=== PATIENT | male | born 1950 | race Caucasian/White ===

== ENCOUNTER → 2017-01-03 | Outpatient (CLI) | payer BC ==
[~2017-01-03] MED LIST: GLIP10TA13 PO; LISI-556 PO; LISI1TAB8 PO; Lisinopril; METF850T2 PO; SULF1TAB38 PO; TESTOSTERONE
== END ==
LOC: CARD 09:47
DX: R00.1 Bradycardia, unspecified (principal)
CPT/HCPCS: 93225; 93226

== ENCOUNTER → 2018-08-17 | Outpatient (CLI) | payer MEDICARE, OTHER ==
[~2018-08-17] MED LIST changes: +METF-398 PO; -METF850T2 PO
--- NOTE | 2018-08-17 10:49 | Diagnostic Imaging Report ---
PROCEDURE: CT abdomen and pelvis without contrast. TECHNIQUE: Multiple contiguous axial images were obtained through the abdomen and pelvis without the use of intravenous contrast. INDICATION: Abdominal and pelvic pain. FINDINGS: There is a probable tiny calcified granuloma in the visualized left lung base. A small amount of pericardial fluid or thickening is also noted. The unenhanced images of the liver and spleen reveal no focal abnormality. There is mild distention of the gallbladder without evidence of gallbladder wall thickening or pericholecystic fluid. A small hiatal hernia is noted. No pancreatic or adrenal gland lesion is identified. The unenhanced images of the kidneys reveal no evidence of mass, stone, or hydronephrosis. There is no evidence of ureteric calculus or dilatation. The appendix has a normal appearance. There is no evidence of free fluid within the abdomen or pelvis. There is mild herniation of fat into both inguinal canals. There is mild diffuse lumbar spondylosis. No localized inflammation or organized fluid collection is identified. IMPRESSION: No acute abnormality is detected. The report was called to Maria D/office of Radha King APRN, by AMOS@10:48 AM. Dictated by: Dictated on workstation # [id number]
== END ==
LOC: RAD 10:10
PROVIDERS: ATTEND Nurse Practitioner Family
DX: R10.2 Pelvic and perineal pain (principal)
CPT/HCPCS: 74176

== ENCOUNTER → 2018-08-21 | Outpatient (CLI) | payer MEDICARE, OTHER ==
--- NOTE | 2018-08-21 17:43 | Diagnostic Imaging Report ---
EXAMINATION: Lumbar spine radiographs, 3 views. COMPARISON: CT abdomen and pelvis August 17, 2018. HISTORY: 67-year-old male, acute onset low back pain. FINDINGS: There are 5 lumbar type vertebral bodies. There is no identified compression deformity or fracture. There are multilevel endplate degenerative related changes with multilevel moderate disc height loss at the thoracolumbar spine levels. The alignment of the lumbar spine is unremarkable. There are mild bilateral facet degenerative changes at L4-L5 and L5-S1. The sacroiliac joints are unremarkable in appearance. There is [id number]-[id number] osteoarthritis of both hips. IMPRESSION: 1. Multilevel moderate disc degenerative changes of thoracolumbar spine with mild bilateral facet degenerative changes at L4-L5 and L5-S1. 2. 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 3. No identified compression deformity or other fracture. Dictated by: Dictated on workstation # [id number]
== END ==
LOC: RAD 16:21
DX: M47.815 Spondylosis without myelopathy or radiculopathy, thoracolumbar region (principal); M47.817 Spondylosis without myelopathy or radiculopathy, lumbosacral region; M16.0 Bilateral primary osteoarthritis of hip
CPT/HCPCS: 72100

== ENCOUNTER → 2018-08-23 | Outpatient (CLI) | payer MEDICARE, OTHER ==
[~2018-08-23] MED LIST changes: +BARIUM SUSPENSION 105% (LIQUID POLIBAR PLUS) 240 ML/DOSE PO ONE; +BARIUM SUSPENSION 60% (LIQUID EZ PAQUE) 240 ML DOSE PO ONE
--- NOTE | 2018-08-23 18:02 | Diagnostic Imaging Report ---
EXAMINATION: Upper GI exam. INDICATION: Abdominal pain. FINDINGS: The preliminary films were unremarkable for an acute abnormality. There was a fair amount of fecal material throughout the ascending, transverse, and descending colon. A double contrast exam was performed. There are no prior studies available for comparison. The patient swallowed the contrast material without difficulty. There is no delay or obstruction of passage of barium through the esophagus. There is a small hiatal hernia, but there is no sign of reflux. There is no evidence for esophagitis either. The stomach shows good distensibility and motility. There is no mass or ulceration. The duodenal bulb and proximal small bowel are unremarkable. IMPRESSION: 1. There is a small sliding hiatal hernia, but there is no evidence for reflux or for esophagitis. 2. There is no gastric mass or ulceration noted. 3. The duodenal bulb and proximal small bowel are unremarkable. Dictated by: Dictated on workstation # [id number]
== END ==
LOC: RAD 10:09
DX: K44.9 Diaphragmatic hernia without obstruction or gangrene (principal)
CPT/HCPCS: 74241

== ENCOUNTER 2018-09-11 05:52 | Outpatient (CLI) | payer MEDICARE, OTHER ==
[~2018-09-11] VITALS: Ht 185.4 cm; Wt 128.5 kg
[~2018-09-11 05:52] MED LIST changes: -BARIUM SUSPENSION 105% (LIQUID POLIBAR PLUS) 240 ML/DOSE PO ONE; -BARIUM SUSPENSION 60% (LIQUID EZ PAQUE) 240 ML DOSE PO ONE
[2018-09-11] MEDS ORDERED: ALOG25TA PO (10:41)
== END 2018-09-11 10:55 | disposition home or self-care (01) ==
LOC: PREOP 05:52
PROVIDERS: ATTEND Surgery
DX: Z01.818 Encounter for other preprocedural examination (principal)

== ENCOUNTER 2018-10-02 12:02 | Day surgery (SDC) | payer MEDICARE, OTHER ==
[~2018-10-02] VITALS: Ht 185.4 cm; Wt 128.5 kg
[~2018-10-02 12:02] MED LIST changes: +ALOG25TA PO
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
[2018-10-02] MEDS ORDERED: LACTATED RINGERS 1,000 ML IV ONE (12:08)
[2018-10-02] MEDS ORDERED: LACTATED RINGERS 1,000 ML IV STA (12:11)
[2018-10-02 12:15] VITALS: BP 150/99
[2018-10-02] MEDS ORDERED: PROPOFOL INJECTION 50 ML IV ONE (13:43)
[2018-10-02] MEDS ORDERED: MIDAZOLAM 2 MG/2 ML (VERSED) VIAL ONE (13:48)
--- NOTE | 2018-10-02 14:40 | Progress Note-Post Operative ---
Post-Operative Progess Note Surgeon (s)/Manufacturing Management Associate (s) Surgeon RETA BAH DO Manufacturing Management Associate: na Pre-Operative Diagnosis history of colon polyps Post-Operative Diagnosis descending colon polyp, anal tag Procedure & Operative Findings Date of Procedure 10/02/18 Procedure Performed/Findings colonoscopy c hot bx polypectomy Anesthesia Type per system support technician Estimated Blood Loss Estimated blood loss (mL): none Specimens/Packing Specimens Removed descending colon polyp RETA BAH DO Oct 02, 2018 14:40
--- NOTE | 2018-10-02 14:44 | Discharge Inst-Simple/Standard ---
Discharge Inst-Standard Patient Instructions/Follow Up Plan of Care/Instructions/FU: 2 weeks Shayna Activity as Tolerated: Yes Discharge Diet: Regular Diet RETA BAH DO Oct 02, 2018 14:44
[2018-10-02 14:50] VITALS: BP 144/87
[2018-10-02 15:15] VITALS: BP 143/95
--- NOTE | 2018-10-02 16:28 | OPERATIVE REPORT ---
DATE OF SERVICE: 10/02/2018 PREOPERATIVE DIAGNOSES: History of colon polyps, family history of colon cancer. POSTOPERATIVE DIAGNOSIS: Descending colon polyp. PROCEDURE: Colonoscopy with hot biopsy polypectomy. SURGEON: Reta Corral DO ANESTHESIA: Per EDITOR MANAGING DIRECTOR. ESTIMATED BLOOD LOSS: None. COMPLICATIONS: None. INDICATIONS: The patient is a 67-year-old male with a history of colon polyps and family history of colon cancer. The patient understands risks and benefits of procedure and wished to proceed with procedure. Consent was signed on the chart. DESCRIPTION OF PROCEDURE: The patient was taken to the endoscopy suite, placed in left lateral recumbent position. A timeout was performed. A digital rectal exam was performed. Large anal tag. No palpable polyps, mass or ulcerations. Good rectal tone. Scope was inserted in the rectum and advanced all the way to the cecum with minimal difficulty. Prep was adequate. Scope was slowly retracted back. There were no polyps, masses or ulceration in the cecum, ascending, transverse colon. Within the ascending colon, a small polyp was present, which hot biopsy polypectomy was performed. Scope was continuously retracted back. No polyps, mass or ulceration of the sigmoid colon and in the rectum, scope was also retroflexed noting no other pathology. Scope was returned to its normal position, slowly withdrawn until completely removed. The patient tolerated the procedure well without any complications. He was in the recovery room in stable condition. RECOMMENDATIONS: The patient will follow up in 2 weeks to discuss pathology results. If he would like anal tag remove, to discuss He will need repeat colonoscopy in 5 years. Any issues before that be seen at that time. Job ID: [id number] DocumentID: [id number] Dictated Date: 10/02/2018 14:48:44 Opera Singer Date: 10/02/2018 16:27:12 Dictated By: RETA CORRAL DO
== END 2018-10-02 15:25 | disposition home or self-care (01) ==
LOC: ENDO 12:02
PROVIDERS: ATTEND Surgery
DX: Z12.11 Encounter for screening for malignant neoplasm of colon (principal); D12.4 Benign neoplasm of descending colon; Z80.0 Family history of malignant neoplasm of digestive organs; Z86.010 Personal history of colon polyps; I10 Essential (primary) hypertension; G47.33 Obstructive sleep apnea (adult) (pediatric); E11.9 Type 2 diabetes mellitus without complications; E66.01 Morbid (severe) obesity due to excess calories; Z68.37 Body mass index [BMI] 37.0-37.9, adult; Z79.84 Long term (current) use of oral hypoglycemic drugs; Z79.899 Other long term (current) drug therapy
CPT/HCPCS: 82962

== ENCOUNTER 2021-08-28 12:20 | Observation (INO) | payer MEDICARE, OTHER ==
[~2021-08-28] VITALS: Ht 182 cm; Wt 125.4 kg
[~2021-08-28 12:20] MED LIST changes: -LISI-556 PO; +LISI1TAB46 PO; -LISI1TAB8 PO; +LISI5TAB20 PO
[2021-08-28] MEDS ORDERED: fentaNYL INJ 100 MCG/2 ML AMP IVP STA (12:32)
--- NOTE | 2021-08-28 12:39 | ED Trauma-Multisystem ---
General Chief Complaint: Trauma-Non Activation Stated Complaint: FALL History of Present Illness Date Seen by Provider: Aug 28, 2021 Time Seen by Provider: 12:35 Initial Comments Patient is a 70-year-old male who presents ED with back pain. 30 minutes ago patient was cleaning out his gutters at home on a a ladder 6 to 8 feet when the ladder gave out secondary to the wind him falling hitting against the house and hard ground. No loss of consciousness or blood thinners. Patient did not ambulate after the fall. EMS was contacted. Patient was placed in c-collar. Patient is complaining of mid to lower back pain. Pain with deep inspiration. Patient the left lower leg. Not up-to-date on his tetanus. Denies any visual changes, vomiting, shortness of breath, abdominal pain, dysuria fever, chills. Denies of any distal numbness and tingling. Moving all extremities without difficulties. Alert and orient x4. GCS 15. (YOLANDA MOLINA) Allergies and Home Medications Allergies Coded Allergies: No Known Drug Allergies (Unverified , 09/11/18) Patient Home Medication List Home Medication List Reviewed: Yes (YOLANDA MOLINA) Alogliptin Benzoate (Nesina) 25 Mg Tablet, 25 MG PO DAILY, (Reported) Entered as Reported by: WILLIE ZACARIAS on 09/11/18 1041 Last Action: Reviewed Glipizide (Glipizide) 10 Mg Tablet, 5 MG PO DAILY, (Reported) Entered as Reported by: VARGHESE ARREAGA on 03/18/16 0436 Last Action: Reviewed Lisinopril (Lisinopril) 5 Mg Tablet, 5 MG PO DAILY Prescribed by: IRON FOWLER on 03/18/16 1051 Last Action: Reviewed Review of Systems Review of Systems Constitutional: No chills, No diaphoresis, No fever, No malaise Eyes: Denies Drainage, Denies Inflammation, Denies Pain Ears: Denies Dizziness, Denies Pain, Denies Bloody Discharge, Denies Purulent Discharge Nose: No Bloody Discharge, No Clear Discharge Mouth: No Bloody Discharge, No Clear Discharge, No Clots Respiratory: No cough, No dyspnea on exertion Cardiovascular: Denies See HPI; Chest Pain Gastrointestinal: No abdominal pain, No diarrhea, No nausea, No vomiting Musculoskeletal: back pain, joint pain, muscle pain, muscle stiffness, muscle weakness Skin: other (Abrasion to left lower extremity) (YOLANDA MOLINA) All Other Systems Reviewed Negative Unless Noted: Yes (YOLANDA MOLINA) Past Swxnejy-Kjtupz-Xxzfky Hx Immunizations Up To Date Tetanus Booster (TDap): Unknown PED Vaccines UTD: No (YOLANDA MOLINA) Seasonal Allergies Seasonal Allergies: Yes (YOLANDA MOLINA) Past Medical History Surgeries: Yes (C-SPINE SURGERY, KNEE SCOPE / TORN MENISCUS) Orthopedic Respiratory: Yes Sleep Apnea Currently Using CPAP: Yes Currently Using BIPAP: No Cardiac: Yes Hypertension Neurological: No Reproductive Disorders: Yes (low testosterone) Sexually Transmitted Disease: No HIV/AIDS: No Genitourinary: No Gastrointestinal: No Musculoskeletal: Yes (NECK PROBLEMS) Arthritis Endocrine: Yes Diabetes, Non-Insulin dep HEENT: Yes (GLASSES) Loss of Vision: Bilateral Hearing Impairment: Denies Cancer: No Psychosocial: No Integumentary: No Blood Disorders: No Adverse Reaction/Blood Tranf: No (N/A) (YOLANDA MOLINA) Physical Exam Vital Signs Vital Signs - First Documented 08/28/21 12:20 Temp 35.4 Pulse 62 Resp 16 B/P (MAP) 112/84 (93) Pulse Ox 96 O2 Delivery Room Air (ELISA CABA MD) Height, Weight, BMI Height: 6'1.00" Weight: 283lbs. 5.0oz. [id number]; 37.4 BMI Method:Stated General Appearance: No Apparent Distress, WD/WN Head: No Evidence of Injury Eyes: Right Eye Abnormal Pupil; Bilateral Eye Normal Inspection, Bilateral Eye PERRL Ears, Nose, Throat: Hearing Grossly Normal, No Evidence of ENT Injury, No Den justin Injury Neck: Full Range of Motion, Normal Inspection, Non Tender, Supple, Other (C- collar in place) Cardiovascular: Regular Rate, Rhythm, No Edema, No Gallop, No JVD Respiratory: Chest Non Tender, Lungs Clear, Normal Breath Sounds, No Accessory Muscle Use Gastrointestinal: Normal Bowel Sounds, No Organomegaly, No Pulsatile Mass, Non Tender Back: Other (Lumbar midline tenderness, lower thoracic midline tenderness. 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 No active bleeding.) (YOLANDA MOLINA) Keeley Coma Score Best Eye Response (Keeley): (4) Open Spontaneously Best Verbal Response (Keeley): (5) Oriented Best Motor Response (Keeley): (6) Obeys Commands Keeley Total: 15 (YOLANDA MOLINA) Progress/Results/Core Measures Results/Orders Lab Results Laboratory Tests Test 08/28/21 12:45 Range/Units White Blood Count 9.3 4.3-11.0 10^3/uL Red Blood Count 5.64 H 4.30-5.52 10^6/uL Hemoglobin 15.3 13.3-17.7 g/dL Hematocrit 47 40-54 % Mean Corpuscular Volume 82 80-99 fL Mean Corpuscular Hemoglobin 27 25-34 pg Mean Corpuscular Hemoglobin Concent 33 32-36 g/dL Red Cell Distribution Width 13.2 10.0-14.5 % Platelet Count 215 130-400 10^3/uL Mean Platelet Volume 10.1 9.0-12.2 fL Immature Granulocyte % (Auto) 1 % Neutrophils (%) (Auto) 70 42-75 % Lymphocytes (%) (Auto) 20 12-44 % Monocytes (%) (Auto) 7 0-12 % Eosinophils (%) (Auto) 3 0-10 % Basophils (%) (Auto) 0 0-10 % Neutrophils # (Auto) 6.5 1.8-7.8 10^3/uL Lymphocytes # (Auto) 1.8 1.0-4.0 10^3/uL Monocytes # (Auto) 0.6 0.0-1.0 10^3/uL Eosinophils # (Auto) 0.2 0.0-0.3 10^3/uL Basophils # (Auto) 0.0 0.0-0.1 10^3/uL Immature Granulocyte # (Auto) 0.1 0.0-0.1 10^3/uL Sodium Level 139 135-145 MMOL/L Potassium Level 3.7 3.6-5.0 MMOL/L Chloride Level 107 98-107 MMOL/L Carbon Dioxide Level 21 21-32 MMOL/L Anion Gap 11 5-14 MMOL/L Blood Urea Nitrogen 15 7-18 MG/DL Creatinine 1.08 0.60-1.30 MG/DL Estimat Glomerular Filtration Rate 75 BUN/Creatinine Ratio 14 Glucose Level 183 H 70-105 MG/DL Calcium Level 9.5 8.5-10.1 MG/DL Corrected Calcium 9.6 8.5-10.1 MG/DL Total Bilirubin 0.7 0.1-1.0 MG/DL Aspartate Amino Transf (AST/SGOT) 19 5-34 U/L Alanine Aminotransferase (ALT/SGPT) 22 0-55 U/L Alkaline Phosphatase 85 40-136 U/L Total Protein 6.8 6.4-8.2 GM/DL Albumin 3.9 3.2-4.5 GM/DL (ELISA CABA MD) Medications Given in ED Current Medications Medications Dose Ordered Sig/Misty Route Start Time Stop Time Status Last Admin Dose Admin Iohexol 100 ml ONCE ONCE IV 08/28/21 13:30 08/28/21 13:31 DC 08/28/21 13:47 100 ML Ketorolac Tromethamine 30 mg ONCE ONCE IVP 08/28/21 14:45 08/28/21 14:46 DC 08/28/21 14:49 30 MG Morphine Sulfate 4 mg ONCE ONCE IVP 08/28/21 14:45 08/28/21 14:46 DC 08/28/21 14:46 4 MG Orphenadrine Citrate 60 mg ONCE ONCE IV 08/28/21 14:30 08/28/21 14:31 DC 08/28/21 14:34 60 MG Sodium Chloride 100 ml ONCE ONCE IV 08/28/21 13:30 08/28/21 13:31 DC 08/28/21 13:47 80 ML (ELISA CABA MD) Vital Signs/I&O 08/28/21 12:20 Temp 35.4 Pulse 62 Resp 16 B/P (MAP) 112/84 (93) Pulse Ox 96 O2 Delivery Room Air (ELISA CABA MD) Departure Communication (Admissions) Time/Spoke to Admitting Phy: 15:41 Patient was discussed with Dr. Josue who accepts patient under observation for further evaluation. Patient is a 70-year-old male who was brought to ED by EMS for middle lower back pain secondary to a fall. Patient was placed in c-collar. Patient has no neurological red flag findings. He has no bowel or urine incontinence, lower extremity weakness. He is moving all extremities but was not able to move secondary to the fall. 6 to 8 feet fall possible hitting his head however more of his pain is mid to lower back. No significant trauma noted on exam. CT scan of the head and cervical spine negative for fracture or bleed. C-collar was cleared and removed. CT scan of the chest and abdomen and pelvis with contrast negative for acute abnormality. CT scan thoracic and lumbar spine negative for acute fracture or trauma. Patient was given multiple doses of pain medication and muscle relaxer. Patient was observed here. Attempted 3 times to ambulate patient but this was unsuccessful secondary to the pain. Patient is able to urinate. Patient was discussed with Dr. Josue accepts patient. Patient may need further imaging such as MRI however concerned that patient safely cannot take care of himself at home and does not have the support. History of hypertension and diabetes (YOLANDA MOLINA) Impression Primary Impression: Intractable low back pain Disposition: ADMITTED INPATIENT Condition: Stable Admissions Decision to Admit Reason: Admit from ER (General) Decision to Admit/Date: Aug 28, 2021 Time/Decision to Admit Time: 15:41 (YOLANDA MOLINA) Departure-Patient Inst. Referrals: ADRY TIDWELL MD (PCP/Family) Primary Care Physician Patient Instructions: Low Back Pain in Adults ATTENDING PHYSICIAN NOTE: I was physically present as attending physician in the emergency department during the care of this patient, but I was not directly involved in the decision making or delivery of care for this patient. (ELISA CABA MD) YOLANDA MOLINA Aug 28, 2021 12:39 ELISA CABA MD Aug 28, 2021 18:23
[2021-08-28 12:52] LABS: BASOPHILS % (AUTO) 0 % (0-10); EOSINOPHILS # (AUTO) 0.2 10^3/uL (0.0-0.3); EOSINOPHILS % (AUTO) 3 % (0-10); HEMATOCRIT 47 % (40-54); HEMOGLOBIN 15.3 g/dL (13.3-17.7); LYMPHOCYTES # (AUTO) 1.8 10^3/uL (1.0-4.0); LYMPHOCYTES % (AUTO) 20 % (12-44); MEAN CORPUSCULAR HEMOGLOBIN 27 pg (25-34); MEAN CORPUSCULAR HGB CONC 33 g/dL (32-36); MEAN CORPUSCULAR VOLUME 82 fL (80-99); MEAN PLATELET VOLUME 10.1 fL (9.0-12.2); MONOCYTES # (AUTO) 0.6 10^3/uL (0.0-1.0); MONOCYTES % (AUTO) 7 % (0-12); NEUTROPHILS # (AUTO) 6.5 10^3/uL (1.8-7.8); NEUTROPHILS % (AUTO) 70 % (42-75); PLATELET COUNT 215 10^3/uL (130-400); WHITE BLOOD COUNT 9.3 10^3/uL (4.3-11.0)
[2021-08-28 13:04] LABS: ALBUMIN 3.9 GM/DL (3.2-4.5); POTASSIUM 3.7 MMOL/L (3.6-5.0)
[2021-08-28 13:06] LABS: CALCIUM 9.5 MG/DL (8.5-10.1)
[2021-08-28 13:07] LABS: TOTAL PROTEIN 6.8 GM/DL (6.4-8.2)
[2021-08-28 13:09] LABS: BILIRUBIN,TOTAL 0.7 MG/DL (0.1-1.0)
[2021-08-28 13:10] LABS: CREATININE SERUM 1.08 MG/DL (0.60-1.30)
[2021-08-28] MEDS ORDERED: HOLD METFORMIN - RECEIVED CONTRAST 20 ML VIAL IV SCH (13:30)
[2021-08-28] MEDS ORDERED: IOHEXOL 350 MG/ML 100 ML (OMNIPAQUE 350) VIAL IV ONE (13:30)
[2021-08-28] MEDS ORDERED: NS 100 ML (IVPB) BAG IV ONE (13:30)
--- NOTE | 2021-08-28 14:06 | Diagnostic Imaging Report ---
PROCEDURE: CT head and CT cervical spine without contrast. TECHNIQUE: Multiple contiguous axial images were obtained through the brain and cervical spine without the use of intravenous contrast. Sagittal and coronal reformations through the cervical spine were then performed. Auto Exposure Controls were utilized during the CT exam to meet ALARA standards for radiation dose reduction. INDICATION: Head and neck injury, struck with Ayden handle, neck and head pain. COMPARISON: Head CT 12/23/2012. Discussion: Head: No acute intracranial hemorrhage, mass, midline shift, or hydrocephalus. The ventricles and sulci are normal size and configuration for age. The orbits, sinuses, mastoid air cells, and calvarium are unremarkable. Cervical spine: Advanced degenerative disc disease and facet arthropathy are noted. There is fusion of the C5-C6 intervertebral disc space. There are prominent disc osteophyte complexes at multiple levels likely contributing to moderate if not severe central canal stenosis. No fracture or subluxation. Alignment is anatomic. Paraspinal soft tissues are unremarkable. Impression: 1. No acute intracranial abnormality identified. 2. Advanced degenerative disease noted within the cervical spine. No acute fracture. Dictated by: Dictated on workstation # [id number]
--- NOTE | 2021-08-28 14:25 | Diagnostic Imaging Report ---
PROCEDURE: CT thoracic and lumbar spine without contrast. TECHNIQUE: Multiple contiguous axial images were obtained through the thoracic and lumbar spine without the use of intravenous contrast. Sagittal and coronal reformations were then performed. All CT scans use one or more of the following dose optimizing techniques: automated exposure control, MA and/or KvP adjustment based on a patient size and exam type, or iterative reconstruction. INDICATION: Mid to low back pain after a 6' fall. COMPARISON: CT of the abdomen and pelvis 08/17/2018. DISCUSSION: No acute fracture or subluxation. Moderate to advanced degenerative disc disease noted diffusely throughout the thoracic and lumbar spine. Multiple anterior bridging syndesmophytes are noted throughout. Alignment is anatomic. Moderate degenerative disease noted within the sacroiliac joints. Antecedent granulomatous disease noted within the chest. Soft tissues are otherwise unremarkable. Very mild dextroscoliosis of the thoracic spine. Advanced facet arthropathy noted throughout the lumbar spine. Baastrup's disease is present. IMPRESSION: 1. Chronic changes of the thoracic and lumbar spine, as described. No acute fracture identified. Dictated by: Dictated on workstation # [id number]
--- NOTE | 2021-08-28 14:27 | Diagnostic Imaging Report ---
PROCEDURE: CT chest, abdomen, and pelvis with contrast. TECHNIQUE: Multiple contiguous axial images were obtained through the chest, abdomen, and pelvis after the administration of intravenous contrast. Auto Exposure Controls were utilized during the CT exam to meet ALARA standards for radiation dose reduction. INDICATION: Chest and abdominal pain after a fall from 6 foot height. COMPARISON: CT of abdomen and pelvis 08/17/2018. DISCUSSION: CHEST: No pneumothorax. No consolidation. Thoracic aorta is normal in caliber and configuration. Normal heart size. No pleural or pericardial fluid. No adenopathy. No acute osseous abnormality. ABDOMEN / PELVIS: Small hiatal hernia. The liver, gallbladder, pancreas, stomach, spleen, and adrenal glands are otherwise unremarkable. No renal stone or hydronephrosis. The aorta is normal in caliber. Diverticulosis with no secondary evidence of diverticulitis. The bladder and prostate gland are unremarkable. No ascites or adenopathy. The appendix is normal. No obstruction or pneumatosis. No osseous abnormality. IMPRESSION: 1. No acute abnormality within the chest, abdomen, or pelvis. Dictated by: Dictated on workstation # [id number]
[2021-08-28] MEDS ORDERED: ORPHENADRINE 60 MG/2 ML (NORFLEX) AMP (ED ONLY) IM ONE (14:30)
[2021-08-28] MEDS ORDERED: ORPHENADRINE 60 MG/2 ML (NORFLEX) AMP (ED ONLY) IV ONE (14:30)
[2021-08-28] MEDS ORDERED: KETOROLAC 30 MG/ML VIAL IVP ONE (14:45)
[2021-08-28] MEDS ORDERED: morphine INJ 10 MG/ML 1ML (SYR OR VIAL) IVP ONE (14:45)
[2021-08-28 16:50] VITALS: BP 122/79
[2021-08-28] MEDS ORDERED: ACETAMINOPHEN 500 MG TAB (TYLENOL) PO PRN (17:15)
[2021-08-28] MEDS ORDERED: morphine INJ 4 MG/ML 1 ML (VIAL/SYRINGE) IV PRN (17:15)
[2021-08-28] MEDS ORDERED: KETOROLAC 30 MG/ML VIAL IV PRN (17:15)
[2021-08-28 19:08] VITALS: BP 140/79
[2021-08-28] MEDS ORDERED: polyethylene glycoL POWDER 17 GM (MIRALAX) PACK PO PRN (20:00)
[2021-08-28] MEDS ORDERED: ONDANSETRON 4 MG (ZOFRAN) ORAL DISSOLVE TAB PO PRN (20:00)
[2021-08-28] MEDS ORDERED: ONDANSETRON 4 MG/2 ML (SDV) Z0FRAN IV PRN (20:00)
[2021-08-28] MEDS ORDERED: ANTACID SUSP 30 ML UDC (MYLANTA) PO PRN (20:00)
[2021-08-28] MEDS ORDERED: ACETAMINOPHEN 325 MG TABLET PO PRN (20:00)
[2021-08-28] MEDS ORDERED: diphenhydrAMINE 25 MG TAB (BENADRYL) PO PRN (20:00)
[2021-08-28] MEDS ORDERED: MELATONIN 3 MG TABLET PO PRN (20:00)
[2021-08-28] MEDS ORDERED: CATHETER FLUSH 10 ML SYR IVP PRN (20:30)
[2021-08-28] MEDS: inSUlin ASPART (NovoLOG) 1 UNIT/0.01 ML (CHARGE PER UNIT) SC SCH (20:47)
[2021-08-28] MEDS: SENNOSIDES 8.6 MG (SENOKOT) TAB PO SCH (21:52)
[2021-08-28] MEDS: DOCUSATE SODIUM 100 MG (COLACE) CAP PO SCH (21:52)
[2021-08-28] MEDS: CATHETER FLUSH 10 ML SYR IVP SCH (21:53)
[2021-08-28] MEDS: ENOXAPARIN 40 MG/0.4 ML (LOVENOX) SYR SC SCH (21:53)
[2021-08-29] VITALS (7 sets, daily range): BP systolic 117–143; BP diastolic 68–90
[2021-08-29 05:11] LABS: BASOPHILS % (AUTO) 1 % (0-10); EOSINOPHILS # (AUTO) 0.3 10^3/uL (0.0-0.3); EOSINOPHILS % (AUTO) 4 % (0-10); HEMATOCRIT 47 % (40-54); HEMOGLOBIN 15.1 g/dL (13.3-17.7); LYMPHOCYTES # (AUTO) 2.3 10^3/uL (1.0-4.0); LYMPHOCYTES % (AUTO) 29 % (12-44); MEAN CORPUSCULAR HEMOGLOBIN 27 pg (25-34); MEAN CORPUSCULAR HGB CONC 32 g/dL (32-36); MEAN CORPUSCULAR VOLUME 83 fL (80-99); MEAN PLATELET VOLUME 10.1 fL (9.0-12.2); MONOCYTES # (AUTO) 0.7 10^3/uL (0.0-1.0); MONOCYTES % (AUTO) 8 % (0-12); NEUTROPHILS # (AUTO) 4.7 10^3/uL (1.8-7.8); NEUTROPHILS % (AUTO) 59 % (42-75); PLATELET COUNT 218 10^3/uL (130-400); WHITE BLOOD COUNT 8.1 10^3/uL (4.3-11.0)
[2021-08-29 05:30] LABS: POTASSIUM 3.8 MMOL/L (3.6-5.0)
[2021-08-29 05:32] LABS: CALCIUM 9.2 MG/DL (8.5-10.1)
[2021-08-29 05:36] LABS: CREATININE SERUM 0.89 MG/DL (0.60-1.30)
[2021-08-29] MEDS: CATHETER FLUSH 10 ML SYR IVP SCH ×3 (06:03→20:53)
[2021-08-29] MEDS: inSUlin ASPART (NovoLOG) 1 UNIT/0.01 ML (CHARGE PER UNIT) SC SCH ×4 (06:03→20:53)
[2021-08-29] MEDS: SENNOSIDES 8.6 MG (SENOKOT) TAB PO SCH ×2 (08:21→20:53)
[2021-08-29] MEDS: DOCUSATE SODIUM 100 MG (COLACE) CAP PO SCH ×2 (08:21→20:53)
[2021-08-29] MEDS: BACLOFEN 10 MG (LIORESAL) TAB PO SCH ×3 (10:58→20:53)
--- NOTE | 2021-08-29 15:44 | History & Physical-Hospitalist ---
History of Present Illness HPI/Chief Complaint Doyle Goldman is a 70 year old male with PMH HTN, T2DM, obesity, who presented with back pain. He fell from a ladder at his house. He is not sure how he landed, but he says he hit the house. He denies hitting his head or losing consciousness. He laid on the ground until EMS arrived. Upon my exam, he is feeling slightly better. He is having low back pain in the center of his back with some pain radiating out to both sides just above his buttocks. He is not having any pain or numbness in his legs. He denies chest pain. He denies shortness of breath. He has been able to eat and drink. He was able to stand up beside his bed earlier. Source: patient Exam Limitations: no limitations Date Seen 08/29/21 Time Seen by a Provider: 09:55 Attending Physician Manpreet Teague MD PCP Rosendo Perez MD Referring Physician Date of Admission Aug 28, 2021 at 15:35 Home Medications & Allergies Home Medications Reviewed patient Home Medication Reconciliation performed by pharmacy medication reconciliations agriculture technician and/or nursing. Patients Allergies have been reviewed. Allergies Allergies Coded Allergies No Known Drug Allergies (Unverified09/11/18) Past Sretotd-Ovllsb-Gyiegq Hx Patient Social History Tobacco Use?: No Smoking Status: Never a Smoker Use of E-Cig and/or Vaping dev: No Substance use?: No Alcohol Use?: No Pt feels they are or have been: No Immunizations Up To Date Date of Influenza Vaccine: Apr 02, 2018 Tetanus Booster (TDap): More Than 5 Years PED Vaccines UTD: No Date of Pneumonia Vaccine: Mar 28, 2016 Seasonal Allergies Seasonal Allergies: Yes Current Status Advance Directives: No Primary Language: Guinean Preferred Spoken Language: Guinean Sensory deficits: Vision impairment Implanted or Applied Medical D: Orthopedic hardware Past Medical History Surgeries: Orthopedic Sleep Apnea Currently Using CPAP: Yes Currently Using BIPAP: No Hypertension Sexually Transmitted Disease: No HIV/AIDS: No Arthritis Diabetes, Non-Insulin dep Loss of Vision: Bilateral Hearing Impairment: Denies Blood Disorders: No Adverse Reaction/Blood Tranf: No (N/A) Family Medical History No Pertinent Family Hx Review of Systems Constitutional: no symptoms reported EENTM: no symptoms reported Respiratory: no symptoms reported Cardiovascular: no symptoms reported Gastrointestinal: no symptoms reported Genitourinary: no symptoms reported Musculoskeletal: back pain Skin: no symptoms reported Psychiatric/Neurological: No Symptoms Reported Physical Exam Physical Exam Vital Signs Vital Signs - First Documented 08/28/21 08/28/21 12:20 16:56 Temp 35.4 Pulse 62 Resp 16 B/P (MAP) 112/84 (93) Pulse Ox 96 O2 Delivery Room Air O2 Flow Rate 0.00 Capillary Refill : Less Than 3 Seconds Height, Weight, BMI Height: 6'1.00" Weight: 283lbs. 5.0oz. 128.650480ox; 37.85 BMI Method:Stated General Appearance: No Apparent Distress, Obese HEENT: PERRL/EOMI, Pharynx Normal Neck: Normal Inspection, Supple Respiratory: Lungs Clear, Normal Breath Sounds, No Respiratory Distress Cardiovascular: Regular Rate, Rhythm, No Edema, No Murmur Gastrointestinal: Normal Bowel Sounds, Non Tender, Soft Back: Normal Inspection, Other (mid back pain around T12-L1, bilateral flank tenderness) Extremity: Normal Inspection, No Pedal Edema Neurologic/Psychiatric: Alert, No Motor/Sensory Deficits, Normal Mood/Affect Skin: Normal Color, Warm/Dry Results Results/Procedures Labs Laboratory Tests 08/28/21 12:45 08/29/21 04:51 Patient resulted labs reviewed. Imaging: Reviewed Imaging Report Assessment/Plan Admission Diagnosis Acute low back pain after fall from ladder Admission Status: Observation Assessment and Plan Low back pain Fall from ladder Trauma workup negative Pain regimen Add Baclofen Monitor symptoms PT/OT tomorrow HTN Continue Lisinopril T2DM Sliding scale insulin Obesity Clinically significant, no acute management needs DVT prophylaxis: Lovenox Diagnosis/Problems Diagnosis/Problems (1) Fall from ladder Status: Acute Qualifiers: Encounter type: initial encounter Qualified Codes: W11.XXXA - Fall on and from ladder, initial encounter (2) Low back pain Status: Acute Qualifiers: Chronicity: acute Back pain laterality: bilateral Sciatica presence: without sciatica Qualified Codes: M54.50 - Low back pain, unspecified MANPREET TEAGUE MD Aug 29, 2021 15:44
[2021-08-29] MEDS: ENOXAPARIN 40 MG/0.4 ML (LOVENOX) SYR SC SCH (20:53)
[2021-08-30 04:15] VITALS: BP 146/83
[2021-08-30 05:15] LABS: BASOPHILS % (AUTO) 0 % (0-10); EOSINOPHILS # (AUTO) 0.3 10^3/uL (0.0-0.3); EOSINOPHILS % (AUTO) 4 % (0-10); HEMATOCRIT 46 % (40-54); HEMOGLOBIN 15.1 g/dL (13.3-17.7); LYMPHOCYTES # (AUTO) 1.7 10^3/uL (1.0-4.0); LYMPHOCYTES % (AUTO) 21 % (12-44); MEAN CORPUSCULAR HEMOGLOBIN 28 pg (25-34); MEAN CORPUSCULAR HGB CONC 33 g/dL (32-36); MEAN CORPUSCULAR VOLUME 83 fL (80-99); MEAN PLATELET VOLUME 10.4 fL (9.0-12.2); MONOCYTES # (AUTO) 0.7 10^3/uL (0.0-1.0); MONOCYTES % (AUTO) 9 % (0-12); NEUTROPHILS # (AUTO) 5.2 10^3/uL (1.8-7.8); NEUTROPHILS % (AUTO) 65 % (42-75); PLATELET COUNT 182 10^3/uL (130-400)
[2021-08-30] MEDS: CATHETER FLUSH 10 ML SYR IVP SCH ×2 (05:15→16:08)
[2021-08-30 05:24] LABS: POTASSIUM 3.8 MMOL/L (3.6-5.0)
[2021-08-30] MEDS: inSUlin ASPART (NovoLOG) 1 UNIT/0.01 ML (CHARGE PER UNIT) SC SCH ×3 (05:24→16:06)
[2021-08-30 05:26] LABS: CALCIUM 9.2 MG/DL (8.5-10.1)
[2021-08-30 05:30] LABS: CREATININE SERUM 0.87 MG/DL (0.60-1.30)
[2021-08-30 08:00] VITALS: BP 145/84
[2021-08-30] MEDS: SENNOSIDES 8.6 MG (SENOKOT) TAB PO SCH (08:48)
[2021-08-30] MEDS: BACLOFEN 10 MG (LIORESAL) TAB PO SCH ×2 (08:48→12:49)
[2021-08-30] MEDS: DOCUSATE SODIUM 100 MG (COLACE) CAP PO SCH (08:48)
[2021-08-30] MEDS ORDERED: lisINopril 5 MG (PRINIVIL) TABLET PO SCH (09:00)
[2021-08-30] MEDS ORDERED: ACET-2267 PO (10:22)
[2021-08-30] MEDS ORDERED: GLIP10TA24 PO (10:22)
--- NOTE | 2021-08-30 11:51 | Diagnostic Imaging Report ---
EXAM: MRI THORACIC SPINE W/O CON INDICATION: Fall from ladder. Thoracic back pain. COMPARISON: CT thoracic and lumbar spine without contrast 08/28/2021. MRI lumbar spine without contrast also performed today. FINDINGS: Normal alignment of the thoracic spine. Superior endplate compression fracture of T12 results in less than 10% height loss and is edematous consistent with an acute to subacute fracture. No retropulsion. Edema within ligamentum flavum at T11-T12 and a small dorsal epidural hematoma results in no significant spinal canal stenosis. Vertebral body heights are otherwise preserved. No other suspicious edema in the thoracic spine. Benign hemangioma in the T8 vertebral body. The intervertebral discs are well preserved in the thoracic spine. No high-grade spinal canal or neural foraminal narrowing. No abnormal signal in the thoracic spinal cord. Disc protrusion at C6-C7, seen only on the sagittal sequences, likely results in only mild spinal canal stenosis. The visualized paravertebral soft tissues are unremarkable. IMPRESSION: 1. Acute to subacute superior endplate compression fracture of T12 resulting in less than 10% height loss. No retropulsion. There is however some edema within the interspinous ligament at T11-T12 with small dorsal epidural hematoma that results in no high-grade spinal canal stenosis. Given the posterior element component, this fracture may be unstable. Recommend neurosurgical consultation. 2. Spondylotic changes in the thoracic spine result in no neural impingement. 3. No abnormal signal in the thoracic spinal cord. Dictated by: Dictated on workstation # [id number]
--- NOTE | 2021-08-30 12:23 | Diagnostic Imaging Report ---
PROCEDURE: MRI lumbar spine. TECHNIQUE: Multiplanar, multisequence MRI of the lumbar spine was performed without contrast. INDICATION: Fall. Thoracic and lumbar spine pain. COMPARISON: MRI thoracic spine without contrast, also performed today. CT thoracic and lumbar spine from 08/28/2021. FINDINGS: Superior endplate compression fracture of T12 results in less than 10% height loss and no retropulsion. However, there is also edema within the interspinous ligament at T11-T12 and a small dorsal epidural hematoma at this level resulting in no substantial spinal canal narrowing. No definite posterior element bony fractures are identified on this exam or the comparison CT. Vertebral body heights are otherwise preserved. No abnormal signal in the conus which terminates at T12-L1. Normal morphology of the cauda equina. The visualized pelvis and paravertebral soft tissues are unremarkable. L1-L2: No spinal canal, lateral recess or neural foraminal narrowing. L2-L3: Mild facet arthropathy. No spinal canal, lateral recess or neural foraminal narrowing. L3-L4: Annular disc bulging, ligamentous hypertrophy and facet arthropathy all result in severe spinal canal stenosis. Severe bilateral neural foraminal narrowing. L4-L5: Annular disc bulge and facet arthropathy result in moderate bilateral lateral recess narrowing. Severe bilateral neural foraminal narrowing. Mild spinal canal narrowing. L5-S1: No spinal canal, lateral recess or neural foraminal narrowing. IMPRESSION: 1. Superior endplate compression fracture of T12 results in less than 10% height loss and no retropulsion. However, there is edema within the interspinous ligament at T11-T12 and the dorsal epidural hematoma which results in no substantial spinal canal stenosis. Given the posterior element involvement, this is suspicious for an unstable fracture and neurosurgical consultation is recommended. 2. Spondylotic changes result in severe spinal canal stenosis at L3-L4. 3. Multilevel high-grade lateral recess and neural foraminal narrowing, detailed above. Findings discussed with Dr. Donna Tuttle at 12:12 p.m. on 08/30/2021. Dictated by: Dictated on workstation # [id number]
[2021-08-30 12:42] VITALS: BP 166/87
--- NOTE | 2021-08-30 12:47 | Discharge Summary ---
Diagnosis/Chief Complaint Date of Admission Aug 28, 2021 at 15:35 Date of Discharge Discharge Date: Aug 30, 2021 Admission Diagnosis Acute low back pain after fall from ladder Primary Care Rosendo Perez MD Discharge Diagnosis (1) Fall from ladder Status: Acute (2) Low back pain Status: Acute (3) T12 compression fracture Status: Acute (4) Spinal epidural hematoma Status: Acute Discharge Summary Discharge Physical Exam Allergies: Coded Allergies: No Known Drug Allergies (Unverified , 09/11/18) Vitals & I&Os Vital Signs Date Time Temp Pulse Resp B/P (MAP) Pulse Ox O2 Delivery O2 Flow Rate FiO2 08/30/21 12:42 37.2 69 18 166/87 (113) 94 Room Air 08/28/21 16:56 0.00 General Appearance: No Apparent Distress, WD/WN Cardiovascular: Regular Rate, Rhythm, No Murmur Gastrointestinal: Normal Bowel Sounds, Soft Neurologic/Psychiatric: Alert, Oriented x3 Hospital Course Patient is a 70-year-old male who was admitted to the hospital for observation following fall from ladder of 8 feet. He had intractable back pain despite negative x-ray and CT he underwent MRI which revealed acute to subacute superior endplate compression fracture of T12 with edema within the intraspinous ligament of T11 and T12 with a small dorsal epidural hematoma. Given these findings I initiated transfer to [place] for neurosurgery evaluation. I discussed the case with who agreed with neurosurgery evaluation. He was accepted in transfer by Dr Nickerson. Labs (last 24 hrs) Laboratory Tests 08/29/21 15:29: Glucometer 155H 08/30/21 04:37: White Blood Count 8.0, Red Blood Count 5.48, Hemoglobin 15.1, Hematocrit 46, Mean Corpuscular Volume 83, Mean Corpuscular Hemoglobin 28, Mean Corpuscular Hemoglobin Concent 33, Red Cell Distribution Width 13.2, Platelet Count 182, Mean Platelet Volume 10.4, Immature Granulocyte % (Auto) 0, Neutrophils (%) (Auto) 65, Lymphocytes (%) (Auto) 21, Monocytes (%) (Auto) 9, Eosinophils (%) (Auto) 4, Basophils (%) (Auto) 0, Neutrophils # (Auto) 5.2, Lymphocytes # (Auto) 1.7, Monocytes # (Auto) 0.7, Eosinophils # (Auto) 0.3, Basophils # (Auto) 0.0, Immature Granulocyte # (Auto) 0.0, Sodium Level 136, Potassium Level 3.8, Chloride Level 105, Carbon Dioxide Level 20L, Anion Gap 11, Blood Urea Nitrogen 10, Creatinine 0.87, Estimat Glomerular Filtration Rate 94, BUN/Creatinine Ratio 11, Glucose Level 206H, Calcium Level 9.2 08/30/21 05:16: Glucometer 217H Patient resulted labs reviewed. Pending Labs Imaging: Reviewed Imaging Report Discussion & Recommendations Discharge Planning: >30 minutes discharge planning Discharge Home Medications: Active Scripts Active Reported Tylenol Extra Strength (Acetaminophen) 500 Mg Tablet 1,000 Mg PO Q8H PRN Glipizide ER (Glipizide) 10 Mg Tab.er.24 10 Mg PO DAILY Instructions to patient/family Please see electronic discharge instructions given to patient. Problem Qualifiers (1) Fall from ladder: Encounter type: initial encounter Qualified Codes: W11.XXXA - Fall on and from ladder, initial encounter (2) Low back pain: Chronicity: acute Back pain laterality: bilateral Sciatica presence: without sciatica Qualified Codes: M54.50 - Low back pain, unspecified (3) T12 compression fracture: Encounter type: initial encounter Qualified Codes: S22.080A - Wedge compression fracture of T11-T12 vertebra, initial encounter for closed fracture NGUYEN MULLINS MD Aug 30, 2021 12:47
--- NOTE | 2021-08-30 13:19 | Physical Therapy Progress Note ---
Therapy Progress Note No PT initiated due to patient transferring to OSH for further care per SW. JAY JAY GONZALEZ PT Aug 30, 2021 13:19
[2021-08-30 16:02] VITALS: BP 128/79
[2021-08-30 16:40] VITALS: BP 132/66
== END 2021-08-30 20:15 | disposition critical access hospital (66) ==
LOC: EDUNIT# 12:20 → ER 12:21 → 4TH 15:35
PROVIDERS: ADMIT Internal Medicine; ATTEND Internal Medicine
DX: M54.50 Low back pain, unspecified (principal); S22.080A Wedge compression fracture of T11-T12 vertebra, initial encounter for closed fracture; T14.8XXA Other injury of unspecified body region, initial encounter; I10 Essential (primary) hypertension; E11.9 Type 2 diabetes mellitus without complications; E66.9 Obesity, unspecified; W11.XXXA Fall on and from ladder, initial encounter; Z79.899 Other long term (current) drug therapy; Z79.84 Long term (current) use of oral hypoglycemic drugs
CPT/HCPCS: 36415; 70450; 71260; 72125; 72128; 72131; 72146; 72148; 74177; 80048; 80053; 82947; 85025; G0378

== ENCOUNTER 2021-09-10 09:00 | Emergency (ER) | payer MEDICARE, OTHER ==
[~2021-09-10] VITALS: Ht 185.5 cm; Wt 124.7 kg
[~2021-09-10 09:00] MED LIST changes: +ACET-2267 PO; +GLIP10TA24 PO
[2021-09-10] MEDS ORDERED: morphine INJ 10 MG/ML 1ML (SYR OR VIAL) IVP STA (09:41)
[2021-09-10] MEDS ORDERED: KETOROLAC 30 MG/ML VIAL IVP ONE (09:45)
[2021-09-10 09:50] LABS: BASOPHILS # (AUTO) 0.1 10^3/uL (0.0-0.1); BASOPHILS % (AUTO) 1 % (0-10); EOSINOPHILS # (AUTO) 0.3 10^3/uL (0.0-0.3); EOSINOPHILS % (AUTO) 5 % (0-10); HEMATOCRIT 47 % (40-54); HEMOGLOBIN 15.5 g/dL (13.3-17.7); LYMPHOCYTES # (AUTO) 1.9 10^3/uL (1.0-4.0); LYMPHOCYTES % (AUTO) 32 % (12-44); MEAN CORPUSCULAR HEMOGLOBIN 27 pg (25-34); MEAN CORPUSCULAR HGB CONC 33 g/dL (32-36); MEAN CORPUSCULAR VOLUME 81 fL (80-99); MEAN PLATELET VOLUME 10.5 fL (9.0-12.2); MONOCYTES # (AUTO) 0.5 10^3/uL (0.0-1.0); MONOCYTES % (AUTO) 9 % (0-12); NEUTROPHILS # (AUTO) 3.1 10^3/uL (1.8-7.8); NEUTROPHILS % (AUTO) 53 % (42-75); PLATELET COUNT 185 10^3/uL (130-400); WHITE BLOOD COUNT 5.9 10^3/uL (4.3-11.0)
--- NOTE | 2021-09-10 11:38 | ED Back Pain ---
General Chief Complaint: Back Problems Stated Complaint: BACK PAIN Nursing Triage Note: PT AMBULATET TO ROOM 06 WITH C/O UPPER BACK PAIN. PT REPORTS FALLING OFF A LADDER X2 WEEKS AGO AND SEEN IN THIS ED. PT REPORTS WAS TRANSFERRED TO A HOSP IN [place] AND HAD SURGERY ON LOWER BACK. PT REPORTS NOW HE HAS PAIN IN THE UPPER BACK. Source of Information: Patient Exam Limitations: No Limitations History of Present Illness Date Seen by Provider: Sep 10, 2021 Time Seen by Provider: 09:30 Initial Comments This 70-year-old gentleman presents to the emergency room with complaints of rather intense upper back pain between inferior aspect of his shoulder blades. He sustained a fall on August 28 and sustained a T12 fracture. He was subsequently transferred to [place] where he underwent surgery with Dr. Velasquez. He complains of persistent pain superior to the T12 region. He has healed fairly well from the surgery and his pain in the T12 region has improved. I discussed the situation with Dr. Velasquez's staff at the clinic, but Dr. Velasquez is out of the office today. Patient was also seen locally and had an MRI ordered and schedule for . He denies and weakness of the lower extremities, numbness of the groin or genitals, or any dysfunction of bowel or bladder. He states ibuprofen and opioids do improve the pain. Imaging studies from his prior ER visit were reviewed. He was under the impression no thoracic images were obtained. However, the record shows MRI reports for both the lumbar and thoracic spine. Allergies and Home Medications Allergies Coded Allergies: No Known Drug Allergies (Unverified , 09/11/18) Patient Home Medication List Home Medication List Reviewed: Yes Acetaminophen (Tylenol Extra Strength) 500 Mg Tablet, 1,000 MG PO Q8H PRN for PAIN-MILD (1-4), (Reported) Entered as Reported by: JAYESH PAYTON on 08/30/21 1022 Glipizide (Glipizide ER) 10 Mg Tab.er.24, 10 MG PO DAILY, (Reported) Entered as Reported by: JAYESH PAYTON on 08/30/21 1022 Hydrocodone/Acetaminophen (Hydrocodone-Acetamin 5-325 mg) 1 Each Tablet, 1-2 TAB PO Q4H PRN for PAIN-MODERATE (5-7) Prescribed by: ELISA PINO on 09/10/21 1211 Review of Systems Constitutional: no symptoms reported EENTM: no symptoms reported Respiratory: no symptoms reported Cardiovascular: no symptoms reported Gastrointestinal: no symptoms reported Genitourinary: no symptoms reported Musculoskeletal: see HPI Skin: no symptoms reported Psychiatric/Neurological: No Symptoms Reported Past Iuflntv-Rmwcqi-Reayfk Hx Patient Social History Tobacco Use?: No Smoking Status: Never a Smoker Smokeless Tobacco Frequency: Never a User Use of E-Cig and/or Vaping dev: No Use of E-Cig and/or Vaping Yair: Never a User Substance use?: No Alcohol Use?: No Pt feels they are or have been: No Immunizations Up To Date Tetanus Booster (TDap): Unknown PED Vaccines UTD: No Seasonal Allergies Seasonal Allergies: Yes Past Medical History Surgeries: Yes (C-SPINE SURGERY, KNEE SCOPE / TORN MENISCUS) Orthopedic (T12 fracture with surgical repair) Respiratory: Yes Sleep Apnea Currently Using CPAP: Yes Currently Using BIPAP: No Cardiac: Yes Hypertension Neurological: No Reproductive Disorders: Yes (low testosterone) Sexually Transmitted Disease: No HIV/AIDS: No Genitourinary: No Gastrointestinal: No Musculoskeletal: Yes (NECK PROBLEMS) Arthritis, Fractures (T12) Endocrine: Yes Diabetes, Non-Insulin dep HEENT: Yes (GLASSES) Loss of Vision: Bilateral Hearing Impairment: Denies Cancer: No Psychosocial: No Integumentary: No Blood Disorders: No Adverse Reaction/Blood Tranf: No (N/A) Family Medical History No Pertinent Family Hx Physical Exam Vital Signs Vital Signs - First Documented 09/10/21 09/10/21 09:26 12:23 Temp 35.9 Pulse 80 Resp 16 B/P (MAP) 142/95 (111) Pulse Ox 99 O2 Delivery Room Air Capillary Refill : Less Than 3 Seconds Height, Weight, BMI Height: 6'1.00" Weight: 283lbs. 5.0oz. 128.089061pu; 36.00 BMI Method:Stated General Appearance: WD/WN, Mild Distress, Obese HEENT: Normal ENT Inspection Neck: Normal Inspection Cardiovascular: Regular Rate, Rhythm, No Edema, No Murmur Respiratory: Lungs Clear, Normal Breath Sounds Gastrointestinal: Non Tender, Soft Back: Other (Well-healing surgical site. Tenderness over the thoracic spine in the T8-T10 region.) Extremity: Normal Inspection, No Pedal Edema Neurologic/Psychiatric: Alert, Oriented x3, No Motor/Sensory Deficits, Normal Mood/Affect, area secretary II-XII Norm as Tested Skin: Normal Color, Warm/Dry Progress/Results/Core Measures Results/Orders Lab Results Laboratory Tests Test 09/10/21 09:41 Range/Units White Blood Count 5.9 4.3-11.0 10^3/uL Red Blood Count 5.73 H 4.30-5.52 10^6/uL Hemoglobin 15.5 13.3-17.7 g/dL Hematocrit 47 40-54 % Mean Corpuscular Volume 81 80-99 fL Mean Corpuscular Hemoglobin 27 25-34 pg Mean Corpuscular Hemoglobin Concent 33 32-36 g/dL Red Cell Distribution Width 12.9 10.0-14.5 % Platelet Count 185 130-400 10^3/uL Mean Platelet Volume 10.5 9.0-12.2 fL Immature Granulocyte % (Auto) 0 % Neutrophils (%) (Auto) 53 42-75 % Lymphocytes (%) (Auto) 32 12-44 % Monocytes (%) (Auto) 9 0-12 % Eosinophils (%) (Auto) 5 0-10 % Basophils (%) (Auto) 1 0-10 % Neutrophils # (Auto) 3.1 1.8-7.8 10^3/uL Lymphocytes # (Auto) 1.9 1.0-4.0 10^3/uL Monocytes # (Auto) 0.5 0.0-1.0 10^3/uL Eosinophils # (Auto) 0.3 0.0-0.3 10^3/uL Basophils # (Auto) 0.1 0.0-0.1 10^3/uL Immature Granulocyte # (Auto) 0.0 0.0-0.1 10^3/uL C-Reactive Protein High Sensitivity 0.96 H 0.00-0.50 MG/DL My Orders Orders - ELIAS CABA MD Ed Iv/Invasive Line Start (09/10/21 09:41) Ketorolac Injection (Toradol Injection) (09/10/21 09:45) Morphine Injection (Morphine Injection (09/10/21 09:41) Cbc With Automated Diff (09/10/21 09:44) Hs C Reactive Protein (09/10/21 09:44) Medications Given in ED Vital Signs/I&O 3/18/22 3/18/22 09:26 12:23 Temp 35.9 Pulse 80 72 Resp 16 16 B/P (MAP) 142/95 (111) 137/65 Pulse Ox 99 O2 Delivery Room Air Room Air Blood Pressure Mean: 111 Progress Progress Note : Progress Note Patient was acutely treated with Toradol and morphine. This improved his pain greatly. I discussed the situation with the neurosurgical nursing staff in the clinic. Patient is to proceed with MRI ordered for and follow-up Monday by phone with the clinic. Additional hydrocodone doses were prescribed. See discharge instructions for further discussion. Return precautions were discussed with the patient and his . Departure Impression Primary Impression: Thoracic back pain Qualified Codes: M54.6 - Pain in thoracic spine Additional Impression: Postoperative pain Disposition: HOME, SELF-CARE Condition: Improved Departure-Patient Inst. Decision time for Depature: 12:07 Referrals: ADRY TIDWELL MD (PCP/Family) Primary Care Physician Patient Instructions: Opioids for Short-Term Treatment of Pain ED Add. Discharge Instructions: Continue following your postop instructions provided by Dr. Velasquez. If you do not hear back from Dr. Velasquez's office by Monday, please call them to ask if there are any additional instructions. Keep your appointment at his office in September. You have an appointment for MRIs of the cervical and thoracic spine next . Please keep that appointment. You may continue using ibuprofen 400 to 600 mg every 6 hours as needed for primary control of pain. Add hydrocodone up to 2 tablets every 4 hours as needed for additional pain control. Call with questions or concerns. Return to the ER if you have worsening conditions, especially if you have escalating pain despite pain medications, weakness in your legs, loss of coordination in your legs, groin or genital numbness, or problems controlling bowel or bladder function. The symptoms could be neurologic emergencies and s hould be addressed in the emergency room promptly. If possible, return to [place] in this event. If that is not possible, return to the nearest emergency room. All discharge instructions reviewed with patient and/or family. Voiced understanding. Scripts Hydrocodone/Acetaminophen (Hydrocodone-Acetamin 5-325 mg) 1 Each Tablet 1-2 TAB PO Q4H PRN for PAIN-MODERATE (5-7), #20 TAB Prov: ELISA CABA MD 09/10/21 Copy Copies To 1: ELISA VELASQUEZ JOSHUA T MD Sep 10, 2021 11:38
[2021-09-10] MEDS ORDERED: ACHD5005 PO (12:10)
[2021-09-10 12:23] VITALS: BP 137/65
== END 2021-09-10 12:23 | disposition home or self-care (01) ==
LOC: EDUNIT# 09:00 → ER 09:02
DX: G89.18 Other acute postprocedural pain (principal); M54.6 Pain in thoracic spine; E66.9 Obesity, unspecified; Z68.36 Body mass index [BMI] 36.0-36.9, adult; Z87.81 Personal history of (healed) traumatic fracture
CPT/HCPCS: 36415; 85025; 86141

== ENCOUNTER 2022-09-06 12:08 | Outpatient (CLI) | payer MEDICARE, OTHER ==
[~2022-09-06] VITALS: Ht 185.5 cm; Wt 118.2 kg
[~2022-09-06 12:08] MED LIST changes: +ACHD5005 PO
[2022-09-06] MEDS ORDERED: LISI10TA25 PO (13:32)
[2022-09-06] MEDS ORDERED: INSU100V37 SQ (13:32)
[2022-09-06] MEDS ORDERED: DAPA10TA PO (13:32)
[2022-09-14] MEDS ORDERED: DOCU-143 PO (10:58)
[2022-09-14] MEDS ORDERED: ACHD5005 PO (10:58)
== END 2022-09-13 08:55 | disposition home or self-care (01) ==
LOC: PREOP 12:08
PROVIDERS: ATTEND Surgery
DX: Z01.818 Encounter for other preprocedural examination (principal)

== ENCOUNTER 2022-09-14 08:00 | Day surgery (SDC) | payer MEDICARE, OTHER ==
[2022-09-14] VITALS (11 sets, daily range): BP systolic 100–159; BP diastolic 73–92
[~2022-09-14] VITALS: Ht 185.5 cm; Wt 118.2 kg
[~2022-09-14 08:00] MED LIST changes: +DAPA10TA PO; +INSU100V37 SQ; +LISI10TA25 PO
[2022-09-14] MEDS ORDERED: ceFAZolin INJECTION 2,000 MG in NS (IVPB) 50 ML IV ONE (08:30)
[2022-09-14] MEDS ORDERED: fentaNYL INJ 100 MCG/2 ML AMP ONE (09:07)
[2022-09-14] MEDS ORDERED: ONDANSETRON 4 MG/2 ML (SDV) Z0FRAN ONE (09:07)
[2022-09-14] MEDS ORDERED: LIDOCAINE PF 2% 5 ML (XYLOCAINE) VIAL ONE (09:07)
[2022-09-14] MEDS ORDERED: MIDAZOLAM 2 MG/2 ML (VERSED) VIAL ONE (09:07)
[2022-09-14] MEDS ORDERED: proPOfol 200 MG/20 ML (DIPRIVAN) VIAL IV ONE (09:07)
[2022-09-14] MEDS: LACTATED RINGERS 1,000 ML IV PRN ×2 (09:08→10:26)
[2022-09-14] MEDS ORDERED: BUP/EPI 0.5% 1:200,000 (SENSORCAINE) 30 ML VIAL ONE (09:51)
[2022-09-14] MEDS ORDERED: NEOSTIGMINE (BLOXIVERZ ) 1 MG/1ML 10 ML VIAL ONE (10:43)
[2022-09-14] MEDS ORDERED: GLYCOPYRROLATE 0.2 MG/ML (ROBINUL) 2 ML VIAL ONE (10:43)
[2022-09-14] MEDS ORDERED: ROCURONIUM 50 MG/5 ML (ZEMURON) VIAL IV ONE (10:43)
[2022-09-14] MEDS ORDERED: SEVOFLURANE (ULTANE) 15 ML INHAL SOLN ONE (10:44)
--- NOTE | 2022-09-14 10:51 | Progress Note-Post Operative ---
Post-Operative Progess Note Surgeon (s)/Mitigation Supervisor (s) Surgeon RETA BAH DO Mitigation Supervisor: na Pre-Operative Diagnosis HISTORY OF POLYPS, EXTERNAL HEMORRHOIDS Post-Operative Diagnosis descending colon polyp, internal/external hemorrhoids x 2 Procedure & Operative Findings Date of Procedure 09/14/22 Procedure Performed/Findings colonoscopy c hot bx polypectomy x 1 hemorrhoidectomy x 2 Anesthesia Type general Estimated Blood Loss Estimated blood loss (mL): minimal Specimens/Packing Specimens Removed descending colon polyp, hemorrhoids RETA BAH DO Sep 14, 2022 10:51
--- NOTE | 2022-09-14 10:52 | Progress Note-Pre Operative ---
Pre-Operative Progress Note Date H&P Reviewed: Sep 14, 2022 Time H&P Reviewed: 09:40 History & Physical: H&P Reviewed, Patient Examed, No changes noted Pre-Operative Diagnosis: hx polyps, hemorrhoids RETA BAH DO Sep 14, 2022 10:52
--- NOTE | 2022-09-14 10:56 | Anesthesia-General Post-Op ---
General Patient Condition Mental Status/LOC: Same as Preop Cardiovascular: Satisfactory Nausea/Vomiting: Absent Respiratory: Satisfactory Pain: Controlled Complications: Absent Post Op Complications Complications None Follow Up Care/Instructions Patient Instructions None needed. Anesthesia/Patient Condition Patient Condition Patient is doing well, no complaints, stable vital signs, no apparent adverse anesthesia problems. No complications reported per nursing. SHANIQUA RAGSDALE CRNA Sep 14, 2022 10:56
[2022-09-14] MEDS ORDERED: DOCU-143 PO (10:58)
[2022-09-14] MEDS ORDERED: ACHD5005 PO (10:58)
[2022-09-14] MEDS ORDERED: ONDANSETRON 4 MG/2 ML (SDV) Z0FRAN IVP PRN (11:00)
[2022-09-14] MEDS ORDERED: HYDROmorphone 2 MG/ML VIAL (DILAUDID) IV ONE (11:00)
[2022-09-14] MEDS ORDERED: fentaNYL INJ 100 MCG/2 ML AMP IVP ONE (11:00)
[2022-09-14] MEDS ORDERED: morphine INJ 10 MG/ML 1ML (SYR OR VIAL) IVP ONE (11:00)
--- NOTE | 2022-09-14 11:01 | Discharge Inst-Simple/Standard ---
Discharge Inst-Standard Discharge Medications New, Converted or Re-Newed RX: Transmitted to Pharmacy Patient Instructions/Follow Up Plan of Care/Instructions/FU: 2 weeks Shayna Activity as Tolerated: No Discharge Diet: Regular Diet Other Inst to Patient Follow up Appt: Make appointment for 2 week. Instructions: No lifting greater than 10 pounds. No strenuous activity. May shower in 24 hours, no tub bath or soaking. Use incentive spirometer at home as directed. No Smoking Skin/Wound Care: You have a plug at anus, remove at 24 hour jaya if not fallen out by then. Sitz bath after bowel movements and 2-3 times a day. Symptoms to Report: Appetite Changes, Extremity Discoloration, Numbness/Tingling, Swelling Increased, Bleeding Excessive, Eyesight Changes, Pain Increased, Urine Color Change, Constipation(Persistent), Fever over 101 degree F, Pain/Pressure in chest, Urinating Difficulty, Cough Up/Vomit Blood, Heart Beat Irreg/Pounding, Pain/Pressure in jaw, Vaginal Bleeding Increase, Cramps in feet or legs, Lightheadedness, Pain/Pressure in shoulder, Diarrhea(Persistent), Memory Changes Suddenly, Questions/Concerns, Weight gain consecutive days, Dizziness/Fainting, Nausea/Vomiting, Shortness of Breath, Weight gain over 2 pounds If questions or concerns contact your physician Or seek help at emergency department. RETA BAH DO Sep 14, 2022 11:01
[2022-09-14] MEDS ORDERED: HYDROcodone/APAP 5 MG/325 MG (LORTAB) TAB PO ONE (12:30)
--- NOTE | 2022-09-15 03:17 | OPERATIVE REPORT ---
DATE OF SERVICE: 09/14/2022 PREOPERATIVE DIAGNOSES: History of polyps, external hemorrhoids. POSTOPERATIVE DIAGNOSES: Descending colon polyp, internal and external hemorrhoids x2. PROCEDURE: Colonoscopy with hot biopsy polypectomy x1, hemorrhoidectomy x2. SURGEON: Reta Corral DO ANESTHESIA: General. ESTIMATED BLOOD LOSS: Minimal. COMPLICATIONS: None. INDICATIONS: The patient is a 71-year-old male with history of colon polyps. He also has hemorrhoids. He elected to have it excised. He understands risks and benefits of procedures and wishes to proceed. Consent was signed in chart. DESCRIPTION OF PROCEDURE: The patient was taken to the operating suite, he was placed in the lithotomy position. Timeout was performed. Digital rectal exam was performed. No palpable polyps, masses or ulcerations, but did have hemorrhoidal disease. Scope was inserted in the rectum, advanced all the way to the cecum with minimal difficulty. Prep was adequate. Scope was then slowly retracted back. No polyps, masses or ulcerations within the cecum, ascending, transverse colon. In the descending colon, a small polyp was present, which hot biopsy polypectomy was performed. Scope was then continuously retracted back. No polyps, masses or ulcerations within the remainder of the descending sigmoid colon. Scope was then continuously retracted back into the rectum where it was also retroflexed noting no other pathology. Scope was returned to its normal position, slowly withdrawn until completely removed. The patient was prepped and draped in a sterile fashion, local anesthetic was used to bilateral pudendal block. A Dittmar retractor was inserted. A Harmonic Focus was then used to excise the hemorrhoidal tissue of the left posterior area. This was grasped, elevated and amputated at the base. The right posterior hemorrhoid was then grasped and retracted up. Harmonic Focus was then used to excise it. A 2-0 Vicryl was then used to the mucosal defect in a running locking fashion. Hemostasis had been achieved. A plug using Gelfoam and Vaseline gauze was inserted at the anus to continue to add pressure for hemostasis. The patient was then washed and dried and taken the recovery room in stable condition. RECOMMENDATIONS: The patient will need repeat colonoscopy in 5 years due to history of polyps and current polyp. He will follow up in 2 weeks to see how he is doing. Any issues before that, be seen at that time. Job ID: [id number] DocumentID: [id number] Dictated Date: 09/14/2022 22:29:18 Operator Automated Process Date: 09/15/2022 03:14:00 Dictated By: RETA CORRAL DO
== END 2022-09-14 13:25 | disposition home or self-care (01) ==
LOC: SDC 08:00
PROVIDERS: ATTEND Surgery
DX: Z12.11 Encounter for screening for malignant neoplasm of colon (principal); D12.4 Benign neoplasm of descending colon; K64.8 Other hemorrhoids; K62.0 Anal polyp; K64.4 Residual hemorrhoidal skin tags; G47.33 Obstructive sleep apnea (adult) (pediatric); E66.9 Obesity, unspecified; Z68.34 Body mass index [BMI] 34.0-34.9, adult; Z91.199 Patient's noncompliance with other medical treatment and regimen due to unspecified reason
CPT/HCPCS: 82947; 87081; 88304; 88305